=== PATIENT | female | born 1960 | race Caucasian/White ===

== ENCOUNTER 2016-08-12 19:19 | Emergency (ER) | payer BC ==
[~2016-08-12] VITALS: Ht 152.4 cm; Wt 83.0 kg
[~2016-08-12 19:19] MED LIST: ATENOLOL PO; BUTRANS1 EACH TD; CENTRUM SILVER1 EAC3 PO; GLUCOPHAGE500 MG PO; HYDROCHLOROTH12.5 M1 PO; HYDROCODON-ACE1 EAC7 PO; LISINOPRIL10 MG PO; LISINOPRIL2.5 MG PO; MICROZIDE12.5 M1 PO; MOBIC15 MG PO; MOBIC7.5 MG PO; MOTRIN IB200 MG PO; MOTRIN800 MG PO; PERCOCET 5/31 TABLET PO; ROBAXIN500 MG PO; TENORMIN25 MG PO; TRILIPIX135 MG PO; ZOLOFT25 MG PO
[2016-08-12] MEDS ORDERED: MOTRIN800 MG PO (21:02)
[2016-08-12] MEDS ORDERED: TESSALON PERLE100 MG PO (21:02)
[2016-08-12] MEDS ORDERED: VENTOLIN HFA18 GM IH (21:57)
[2016-08-12 22:11] VITALS: BP 132/84
== END 2016-08-12 22:12 | disposition home or self-care (01) ==
LOC: EME 19:19
DX: J40 Bronchitis, not specified as acute or chronic (principal); S29.011A Strain of muscle and tendon of front wall of thorax, initial encounter; X58.XXXA Exposure to other specified factors, initial encounter; I10 Essential (primary) hypertension; E11.9 Type 2 diabetes mellitus without complications; E78.00 Pure hypercholesterolemia, unspecified; Z79.84 Long term (current) use of oral hypoglycemic drugs
CPT/HCPCS: 71020; 94664; 99281; 99284

== ENCOUNTER 2017-05-22 15:05 | Emergency (ER) | payer BC ==
[~2017-05-22] VITALS: Ht 152.4 cm; Wt 76.7 kg
[~2017-05-22 15:05] MED LIST changes: +TESSALON PERLE100 MG PO; +VENTOLIN HFA18 GM IH
[2017-05-22] MEDS ORDERED: NORCO 5/3251 TABLET PO (18:45)
[2017-05-22 18:55] VITALS: BP 138/83
== END 2017-05-22 19:11 | disposition home or self-care (01) ==
LOC: EME 15:05
DX: M75.22 Bicipital tendinitis, left shoulder (principal); I10 Essential (primary) hypertension; E78.5 Hyperlipidemia, unspecified; Z88.2 Allergy status to sulfonamides; Z87.891 Personal history of nicotine dependence
CPT/HCPCS: 73030; 99281; 99283